=== PATIENT | female | born 1985 | race Caucasian/White ===

== ENCOUNTER 2016-03-22 12:11 | Emergency (ER) | payer BC, MEDICAID ==
[~2016-03-22] VITALS: Ht 165.1 cm; Wt 68.0 kg
[2016-03-22 12:30] VITALS: BP 144/98
[2016-03-22] MEDS ORDERED: TDAP [DIPH/PERTUSSIS/TET] 0.5 ML VIAL IM ONE ×2 (13:30→13:35)
[2016-03-22] MEDS ORDERED: AMOX/CLAVULANATE 875 MG TABLET PO ONE (13:30)
[2016-03-22] MEDS ORDERED: AMOX/CLAVULANATE 875 MG TABLET ONE (13:35)
== END 2016-03-22 13:50 | disposition home or self-care (01) ==
LOC: ER 12:14
DX: S11.95XA Open bite of unspecified part of neck, initial encounter (principal); Y04.1XXA Assault by human bite, initial encounter; Y92.89 Other specified places as the place of occurrence of the external cause; Y93.89 Activity, other specified; Y99.8 Other external cause status
CPT/HCPCS: 90471; 90715; 99283; A4606; A6402; Z7610